=== PATIENT | male | born 1960 | race Caucasian/White ===

== ENCOUNTER 2024-12-16 16:34 | Emergency (ER) | payer MEDICAID ==
[~2024-12-16] VITALS: Ht 177.8 cm; Wt 92.0 kg
[~2024-12-16 16:34] MED LIST: ASCO500T20 PO; ASPI-1406 PO; ATOR40TA70 PO; BUPR-46 PO; GABA-290 PO; LISI10TA26 PO; TAMS-54
[2024-12-16 16:46] VITALS: PULSE 75; RESP 18; TEMP 36.8; O2SAT 98
== END 2024-12-16 16:50 | disposition left against medical advice (07) ==
LOC: ER 16:37
DX: M79.632 Pain in left forearm (principal); Z53.21 Procedure and treatment not carried out due to patient leaving prior to being seen by health care provider

== ENCOUNTER 2025-01-26 15:08 | Emergency (ER) | payer MEDICAID ==
[~2025-01-26] VITALS: Ht 170.2 cm; Wt 99.0 kg
[2025-01-26 15:13] VITALS: BP 156/83; PULSE 98; RESP 18; TEMP 36.6; O2SAT 99
== END 2025-01-26 18:34 | disposition left against medical advice (07) ==
LOC: ER 15:08
DX: F41.9 Anxiety disorder, unspecified (principal)
CPT/HCPCS: 99281